=== PATIENT | female | born 1985 | race Two or more races ===

== ENCOUNTER 2024-08-05 10:19 | Emergency (ER) | payer OTHER ==
[~2024-08-05] VITALS: Ht 172.7 cm; Wt 70.3 kg
[2024-08-05 10:47] VITALS: BP 90/56; O2SAT 98
[2024-08-05] MEDS ORDERED: HYDROCORTISONE ACETATE 25 MG/SUPP.RECT SUPP.RECT RECTAL STA (12:19)
== END 2024-08-05 15:53 | disposition home or self-care (01) ==
LOC: ER 10:21
DX: K60.2 Anal fissure, unspecified (principal)